=== PATIENT | female | born 1960 | race African-American/Black ===

== ENCOUNTER 2017-09-04 18:00 | Emergency (ER) | payer MEDICAID ==
[2017-09-04 18:06] VITALS: BMI 22.9
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
[2017-09-04] MEDS ORDERED: ROBITUSSIN (PLAIN) PO ONE (20:39)
[2017-09-04] MEDS ORDERED: ROBITUSSIN AC ONE ×2 (20:42→22:13)
--- NOTE | 2017-09-04 21:18 | RAD ---
HISTORY: Cough, congestion, and fever. Study: PA and lateral chest. Comparison: Chest x-ray dated September 08, 2016. Findings: The trachea is midline. The cardiac silhouette is unremarkable. Chronic emphysematous changes. Slig htly increased opacification overlying the right lower lobe. The left lung is otherwise clear. No obv ious pneumothorax or pleural effusion. The bony thorax is unremarkable. IMPRESSION: Right lower lobe atelectasis versus early infiltrate. Reported By:
[2017-09-04] MEDS ORDERED: ROCEPHIN VIAL 1 GM IM ONE (21:50)
[2017-09-04] MEDS ORDERED: ROCEPHIN VIAL 1 GM ONE (21:50)
[2017-09-04] MEDS ORDERED: XYLOCAINE 1 % (PLAIN) ONE (21:51)
[2017-09-04 22:25] VITALS: BP 137/74
[2017-09-05] MEDS ORDERED: LEVAQUIN TAB 500 MG PO ONE (21:41)
[2017-09-05] MEDS ORDERED: ROBITUSSIN (PLAIN) PO ONE (22:05)
== END 2017-09-04 22:23 | disposition home or self-care (01) ==
LOC: ER 18:08
DX: J18.9 Pneumonia, unspecified organism (principal)
CPT/HCPCS: 71046; 87502; 87651; 96372; 99282; 99283; J0696; J2001

== ENCOUNTER 2017-12-02 15:25 | Emergency (ER) | payer OTHER, MEDICAID ==
[2017-12-02] MEDS ORDERED: DEMEROL INJ IM ONE (15:30)
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
[2017-12-02 15:34] VITALS: BMI 28.1
[2017-12-02] MEDS ORDERED: DEMEROL INJ ONE (15:38)
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
[2017-12-02 17:33] VITALS: BP 179/98
== END 2017-12-02 17:37 | disposition home or self-care (01) ==
LOC: ER 15:26
DX: Z04.1 Encounter for examination and observation following transport accident (principal); M47.817 Spondylosis without myelopathy or radiculopathy, lumbosacral region; V49.50XA Passenger injured in collision with unspecified motor vehicles in traffic accident, initial encounter
CPT/HCPCS: 71111; 72040; 72100; 73030; 73501; 73560; 96372; 99282; 99283; J2175

== ENCOUNTER 2017-12-06 10:02 | Emergency (ER) | payer OTHER, MEDICAID ==
[2017-12-06 10:08] VITALS: BP 111/68; BMI 21.5
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
[2017-12-06] MEDS ORDERED: NUBAIN INJ 10 IM ONE (12:00)
[2017-12-06] MEDS ORDERED: NUBAIN INJ 10 ONE (12:01)
[2017-12-06] MEDS ORDERED: DEMEROL INJ IM ONE (12:08)
[2017-12-06] MEDS ORDERED: DEMEROL INJ ONE (12:09)
== END 2017-12-06 12:28 | disposition home or self-care (01) ==
LOC: ER 10:26
DX: M47.22 Other spondylosis with radiculopathy, cervical region (principal); M54.2 Cervicalgia; M47.812 Spondylosis without myelopathy or radiculopathy, cervical region
CPT/HCPCS: 72125; 96372; 99282; J2175; J2300

== ENCOUNTER 2018-11-16 02:47 | Inpatient (IN) ==
[2018-11-16] MEDS ORDERED: MOTRIN TAB 800 MG PO ONE ×2 (02:57→03:00)
[2018-11-16 03:28] LABS: HEMATOCRIT 24.8 % (36.0-47.0); MEAN CORPUSCULAR HEMOGLOBIN 27.1 pg (27.0-34.0); MEAN CORPUSCULAR HGB CONC 32.1 g/dL (33.0-35.0); MEAN CORPUSCULAR VOLUME 84.2 fL (80.0-100.0); PLATELET COUNT 270 X10^3/uL (150.0-450.0); RED BLOOD COUNT 2.95 X10^6/uL (3.5-5.4); RED CELL DISTRIBUTION WIDTH 19.1 % (11.6-16.5); WHITE BLOOD COUNT 6.4 X10^3/uL (3.6-10.0)
[2018-11-16 03:29] LABS: BASOPHILS # (AUTO) 0.1 X10^3/uL (0.0-0.1); BASOPHILS % (AUTO) 0.8 % (0.2-1.0); EOSINOPHILS # (AUTO) 0.2 x10^3/uL (0.0-0.2); EOSINOPHILS % (AUTO) 2.9 % (0.9-2.9); LYMPHOCYTES # (AUTO) 0.9 X10^3/uL (1.3-2.9); LYMPHOCYTES % (AUTO) 13.9 % (21.0-51.0); MEAN PLATELET VOLUME 8.1 fL (7.4-11.0); MONOCYTES # (AUTO) 0.4 x10^3/uL (0.3-0.8); MONOCYTES % (AUTO) 6.8 % (0.0-13.0); NEUTROPHILS # (AUTO) 4.8 x10^3/uL (2.2-4.8); NEUTROPHILS % (AUTO) 75.6 % (42.0-75.0)
[2018-11-16 03:40] LABS: ALANINE AMINOTRANSFERASE 7 Units/L (12-78); ALBUMIN 2.4 g/dL (3.4-5.0); ALKALINE PHOSPHATASE 107 Units/L (46-116); ASPARTATE AMINO TRANSFERASE 24 Units/L (15-37); BLOOD UREA NITROGEN 11 mg/dL (7-18); CALCIUM 8.5 mg/dL (8.5-10.1); CARBON DIOXIDE 25.8 mmol/L (21-32); CHLORIDE 102 mmol/L (98-107); COR CA(FOR HYPOALB) 9.8 mg/dL (8.5-10.1); CREATININE 1.19 mg/dL (0.55-1.02); SODIUM 138 mmol/L (136-145); TOTAL PROTEIN 7.9 g/dL (6.4-8.2); eGFR NON BLACK RACES 49 (>60)
--- NOTE | 2018-11-16 04:03 | RAD ---
AP chest Indication: Shortness of breath with fever Comparison: 12/02/2017 Findings: Trachea is midline. Heart size is normal. Chronic interstitial lung change are noted. There is increased patchy opacity within the periphery the right upper lobe. There is blunting of the right costophrenic sulcus consistent with small effusion and/or scarring. No pneumothorax. No acute osseous abnormality. Impression: Chronic interstitial lung changes with blunting of the right costophrenic sulcus representing either effusion or pleural scarring. Patchy opacity within the periphery the right upper lobe suspicious for developing infiltrate. Radiographic follow-up in 6-8 weeks is recommended to ensure resolution. Reported By:
[2018-11-16 04:05] LABS: STREP A BY PCR NOT DETECTED (NOT DETECT)
[2018-11-16] MEDS ORDERED: ROCEPHIN VIAL 1 GRAM IVP ONE (04:26)
[2018-11-16] MEDS ORDERED: TESSALON PERLES PO ONE (04:31)
--- NOTE | 2018-11-16 04:35 | DR.SOBA ---
HPI Time Seen Time Seen by Provider: 11/16/18 04:11 Primary Care Physician Primary Care Physician: ELISE HPI Comment HPI Comment: PATIENT IS 58YR OLD FEMALE Complaints Chief Complaint Doctors Comments: SOB, COUGH, FEVER AND CHEST PAIN PROGRESSIVE OVER 2 MONTHS. Chief Complaint:: SHORTNESS OF BREATH, PRODUCTIVE COUGH, LOW GRADE FEVER FOR THE LAST 2 MONTHS Self Treatment fo Chief Complaint: TYLENOL @ 5PM Reviewed Nurses Notes Reviewed: Yes Source History Provided: Patient and EMS Mode of Arrival Mode of Arrival: EMS Timing Onset of Chief Complaint: 09/17/18 Duration Duration: Months Context Onset:: At Rest PE Risk Factors:: None History of:: None Currently on:: Neither Prehospital Care:: None Modifying Factors Worsens:: Exertion and Lying Flat Improves:: Rest and Sitting Up Associated Signs and Symptoms Associated Signs and Symptoms: Cough, Nasal Congestion, Sore Throat, Chest Pain and Leg Swelling If Chest Pain Quality: Aching and Other (TIGHTNESS, ACHING.) Location: Chest Wall If Cough Cough: Nonproductive and Yellow Other History Other History: HIV POSITIVE. PMH PMH Past Medical History: Yes Past Medical History: Arthritis, COPD, Migraines and Hypertension Past Surgical History: Yes Surgical History: Appendectomy and Hysterectomy Family History History of Family Medical Conditions: Yes Family Medical History: Diabetes Mellitus, Cancer, GA and Hypertension Social History Does patient currently use any type of tobacco product: Yes Have you used tobacco products in the last 12 months: Yes Type of Tobacco Use: Cigarettes Alcohol Use: None Do you use any recreational Drugs:: No Lives Where: Home infectious screening In the last 2 months have you had wt loss of >10#?: NO Have you had fever, night sweats or hemotysis?: No Have you traveled outside the country in the last 6 months?: No Isolation: Standard PE Vital Signs Vitals: Temperature 99.3 F Pulse Rate [Right] 100 Pulse Rate 122 Respiratory Rate 18 Blood Pressure [Right Arm] 123/78 Blood Pressure [Left Arm] 103/71 Blood Pressure 126/84 O2 Sat by Pulse Oximetry 98 ROR Labs Reviewed Result Diagrams: 11/16/18 03:09 11/16/18 03:09 Laboratory: WBC 6.4 X10^3/uL (3.6-10.0) 11/16/18 03:09 RBC 2.95 X10^6/uL (3.5-5.4) L 11/16/18 03:09 Hgb 8.0 g/dL (12.0-16.0) L 11/16/18 03:09 Hct 24.8 % (36.0-47.0) L 11/16/18 03:09 MCV 84.2 fL (80.0-100.0) 11/16/18 03:09 MCH 27.1 pg (27.0-34.0) 11/16/18 03:09 MCHC 32.1 g/dL (33.0-35.0) L 11/16/18 03:09 RDW 19.1 % (11.6-16.5) H 11/16/18 03:09 Plt Count 270 X10^3/uL (150.0-450.0) 11/16/18 03:09 MPV 8.1 fL (7.4-11.0) 11/16/18 03:09 Neut % (Auto) 75.6 % (42.0-75.0) H 11/16/18 03:09 Lymph % (Auto) 13.9 % (21.0-51.0) L 11/16/18 03:09 [place] % (Auto) 6.8 % (0.0-13.0) 11/16/18 03:09 Eos % (Auto) 2.9 % (0.9-2.9) 11/16/18 03:09 Baso % (Auto) 0.8 % (0.2-1.0) 11/16/18 03:09 Neut # (Auto) 4.8 x10^3/uL (2.2-4.8) 11/16/18 03:09 Lymph # (Auto) 0.9 X10^3/uL (1.3-2.9) L 11/16/18 03:09 [place] # (Auto) 0.4 x10^3/uL (0.3-0.8) 11/16/18 03:09 Eos # (Auto) 0.2 x10^3/uL (0.0-0.2) 11/16/18 03:09 Baso # (Auto) 0.1 X10^3/uL (0.0-0.1) 11/16/18 03:09 Absolute Nucleated RBC 0.0 /100WBC 11/16/18 03:09 Sodium 138 mmol/L (136-145) 11/16/18 03:09 Corrected Sodium TNP 11/16/18 03:09 Potassium 3.8 mmol/L (3.5-5.1) 11/16/18 03:09 Chloride 102 mmol/L (98-107) 11/16/18 03:09 Carbon Dioxide 25.8 mmol/L (21-32) 11/16/18 03:09 BUN 11 mg/dL (7-18) 11/16/18 03:09 Creatinine 1.19 mg/dL (0.55-1.02) H 11/16/18 03:09 Est GFR (MDRD) Af Amer 60 (>60) 11/16/18 03:09 Est GFR (MDRD) Non-Af 49 (>60) L 11/16/18 03:09 Glucose 98 mg/dL (65-99) 11/16/18 03:09 Calcium 8.5 mg/dL (8.5-10.1) 11/16/18 03:09 Corrected Calcium 9.8 mg/dL (8.5-10.1) 11/16/18 03:09 Total Bilirubin 0.20 mg/dL (0.2-1.0) 11/16/18 03:09 AST 24 Units/L (15-37) 11/16/18 03:09 ALT 7 Units/L (12-78) L 11/16/18 03:09 Alkaline Phosphatase 107 Units/L (46-116) 11/16/18 03:09 Total Protein 7.9 g/dL (6.4-8.2) 11/16/18 03:09 Albumin 2.4 g/dL (3.4-5.0) L 11/16/18 03:09 Globulin 5.5 g/dL (2.5-4.5) H 11/16/18 03:09 Albumin/Globulin Ratio 0.4 Ratio (1.1-2.1) L 11/16/18 03:09 Influenza Type A (PCR) Negative (NEGATIVE) 11/16/18 02:55 Influenza Type B (PCR) Negative (NEGATIVE) 11/16/18 02:55 S. pyogenes (TEM-PCR) Not detected (NOT DETECT) 11/16/18 02:55
[2018-11-16] MEDS ORDERED: ROCEPHIN VIAL 1 GRAM ONE (04:41)
[2018-11-16] MEDS ORDERED: TYLENOL #3 TAB (W/CODEINE) PO ONE ×2 (04:54→04:56)
--- NOTE | 2018-11-16 05:53 | CT ---
CT facial bones without contrast Indication: Sinus congestion Comparison: None available Technique: Multiple axial images of the facial structures were obtained from the mandible to superior portions of the orbits. Findings: The visualized paranasal sinuses appear unremarkable without significant mucosal thickening or air-fluid levels. The mandible as well as the surrounding bony structures appear unremarkable. The visualized portions of the orbits as well as the globe within the right and left orbit are unremarkable in their CT appearance. IMPRESSION: Negative exam. Reported By:
[2018-11-16] MEDS ORDERED: TUSSIONEX PENNKINETIC SUSP PO PRN (06:11)
[2018-11-16] MEDS ORDERED: SALINE 3% 15 ML NEB TX NEB ONE ×2 (06:27→06:41)
[2018-11-16] MEDS: DUONEB 0.5 MG/3 MG NEB SCH ×4 (08:06→20:05)
[2018-11-16] MEDS ORDERED: DUONEB 0.5 MG/3 MG NEB SCH (09:00)
[2018-11-16] MEDS ORDERED: NS 1/2 1000 ML IV 1,000 ML ONE ×2 (09:16→21:36)
[2018-11-16] MEDS: NS 1/2 1000 ML IV 1,000 ML IV SCH ×2 (09:42→21:50)
[2018-11-16] MEDS: ROCEPHIN VIAL 1 GRAM IVP SCH ×2 (09:43→09:44)
[2018-11-16] MEDS: VIBRAMYCIN 100 MG in NS 100 ML IV + SPIKE MINIBAG* 100 ML IV SCH ×2 (09:44→20:50)
[2018-11-16] MEDS: ROBITUSSIN DM PO SCH ×5 (09:44→20:50)
[2018-11-16] MEDS ORDERED: NS 100 ML IV 100 ML ONE (13:46)
[2018-11-16] MEDS: NORCO 10/325 TAB PO PRN ×2 (14:30→21:15)
[2018-11-16] MEDS: BACTRIM DS TAB PO SCH ×2 (14:30→20:50)
--- NOTE | 2018-11-16 15:48 | CT ---
CT OF THE ABDOMEN AND PELVIS WITH CONTRAST HISTORY: Rebound tenderness Comparison: None Technique: Multiple axial images of the abdomen and pelvis were obtained from the lung bases to the pubic symphysis follow the administration of IV contrast as well as oral contrast. Dose reduction techniques including Automated Exposure Control (AEC) and adjustment of mA and kV were utlized. Findings: The heart is normal in size. There is no pericardial effusion. Focal consolidation at the left lung base. Emphysema of the lung. Liver and spleen are normal in size, enhancement characteristics and contour. No focal lesions. The portal vein is patent. No ductal dilitation. Gallbladder is present. No calcified gallstones or gallbladder wall thickening. The pancreas is unremarkable. Adrenal glands are normal. Kidneys enhance symmetrically without hydronephrosis or nephrolithiasis. No bowel obstruction or inflammation. Surgical clips in the region of the cecum. No abnormal appearing mesenteric or retroperitoneal lymph nodes. No free fluid or fluid collections. The bladder is normal in appearance. Uterus not well seen. No free fluid or abnormal pelvic lymph nodes. No aggressive osseous lesions. IMPRESSION: 1. Findings consistent with left lower lobe pneumonia, possibly secondary to aspiration. 2. No definite source of patient's abdominal pain is identified on this examination. Reported By:
[2018-11-16] MEDS: RESTORIL CAP 15 MG PO PRN (21:51)
[2018-11-17] MEDS: NORCO 10/325 TAB PO PRN ×4 (00:58→19:46)
[2018-11-17] MEDS ORDERED: VISTARIL PO ONE (01:15)
[2018-11-17] MEDS: VISTARIL PO PRN (01:22)
[2018-11-17 06:09] LABS: BASOPHILS % (AUTO) 0.7 % (0.2-1.0); EOSINOPHILS # (AUTO) 0.1 x10^3/uL (0.0-0.2); EOSINOPHILS % (AUTO) 2.8 % (0.9-2.9); HEMATOCRIT 23.4 % (36.0-47.0); HEMOGLOBIN 7.5 g/dL (12.0-16.0); LYMPHOCYTES # (AUTO) 0.6 X10^3/uL (1.3-2.9); LYMPHOCYTES % (AUTO) 12.6 % (21.0-51.0); MEAN CORPUSCULAR HEMOGLOBIN 27.4 pg (27.0-34.0); MEAN CORPUSCULAR HGB CONC 32.1 g/dL (33.0-35.0); MEAN CORPUSCULAR VOLUME 85.5 fL (80.0-100.0); MEAN PLATELET VOLUME 8.5 fL (7.4-11.0); MONOCYTES # (AUTO) 0.3 x10^3/uL (0.3-0.8); NEUTROPHILS # (AUTO) 3.8 x10^3/uL (2.2-4.8); NEUTROPHILS % (AUTO) 76.9 % (42.0-75.0); PLATELET COUNT 239 X10^3/uL (150.0-450.0); RED BLOOD COUNT 2.74 X10^6/uL (3.5-5.4); RED CELL DISTRIBUTION WIDTH 19.5 % (11.6-16.5); WHITE BLOOD COUNT 4.9 X10^3/uL (3.6-10.0)
[2018-11-17 06:42] LABS: ALBUMIN 2.1 g/dL (3.4-5.0); ALKALINE PHOSPHATASE 109 Units/L (46-116); ASPARTATE AMINO TRANSFERASE 20 Units/L (15-37); BLOOD UREA NITROGEN 13 mg/dL (7-18); CALCIUM 8.6 mg/dL (8.5-10.1); CARBON DIOXIDE 20.2 mmol/L (21-32); CHLORIDE 106 mmol/L (98-107); COR CA(FOR HYPOALB) 10.1 mg/dL (8.5-10.1); CREATININE 1.22 mg/dL (0.55-1.02); SODIUM 139 mmol/L (136-145); TOTAL PROTEIN 7.3 g/dL (6.4-8.2); eGFR NON BLACK RACES 48 (>60)
[2018-11-17 06:48] LABS: HYPOCHROMASIA SLIGHT; PLATELET MORPHOLOGY COMMENT NORMAL (NORMAL)
[2018-11-17 06:53] LABS: ALANINE AMINOTRANSFERASE < 6 Units/L (12-78)
[2018-11-17 07:10] VITALS: BMI 20.5
[2018-11-17] MEDS: ROBITUSSIN DM PO SCH ×5 (08:02→20:58)
[2018-11-17] MEDS: VIBRAMYCIN 100 MG in NS 100 ML IV + SPIKE MINIBAG* 100 ML IV SCH ×2 (08:02→20:58)
[2018-11-17] MEDS: ROCEPHIN VIAL 1 GRAM IVP SCH (08:02)
[2018-11-17] MEDS: BACTRIM DS TAB PO SCH ×2 (08:02→20:59)
[2018-11-17] MEDS: DUONEB 0.5 MG/3 MG NEB SCH ×4 (09:21→20:16)
[2018-11-17] MEDS: NICOTINE PATCH TD SCH (11:50)
[2018-11-17] MEDS: NS 1/2 1000 ML IV 1,000 ML IV SCH (11:51)
[2018-11-17] MEDS ORDERED: NS 1/2 1000 ML IV 1,000 ML ONE (11:54)
[2018-11-17] MEDS ORDERED: TYLENOL 325 MG TAB PO ONE ×2 (21:37→22:15)
[2018-11-17] MEDS ORDERED: BENADRYL INJ 50 MG VIAL IVP ONE (21:37)
[2018-11-17] MEDS ORDERED: BENADRYL INJ 50 MG VIAL ONE (22:15)
[2018-11-17] MEDS ORDERED: NS 250 ML IV 250 ML ONE (22:32)
[2018-11-18] MEDS: NORCO 10/325 TAB PO PRN ×4 (00:36→20:58)
[2018-11-18] MEDS: NS 1/2 1000 ML IV 1,000 ML IV SCH ×3 (01:50→17:31)
[2018-11-18] MEDS ORDERED: NS 250 ML IV 250 ML ONE (02:01)
[2018-11-18] MEDS ORDERED: NS 1/2 1000 ML IV 1,000 ML ONE ×2 (04:53→17:27)
[2018-11-18 05:49] LABS: BASOPHILS % (AUTO) 0.8 % (0.2-1.0); EOSINOPHILS # (AUTO) 0.2 x10^3/uL (0.0-0.2); EOSINOPHILS % (AUTO) 5.5 % (0.9-2.9); HEMATOCRIT 30.6 % (36.0-47.0); LYMPHOCYTES # (AUTO) 0.7 X10^3/uL (1.3-2.9); LYMPHOCYTES % (AUTO) 21.1 % (21.0-51.0); MEAN CORPUSCULAR HEMOGLOBIN 27.8 pg (27.0-34.0); MEAN CORPUSCULAR HGB CONC 32.4 g/dL (33.0-35.0); MEAN CORPUSCULAR VOLUME 85.8 fL (80.0-100.0); MEAN PLATELET VOLUME 7.7 fL (7.4-11.0); MONOCYTES # (AUTO) 0.3 x10^3/uL (0.3-0.8); MONOCYTES % (AUTO) 8.5 % (0.0-13.0); NEUTROPHILS # (AUTO) 2.1 x10^3/uL (2.2-4.8); NEUTROPHILS % (AUTO) 64.1 % (42.0-75.0); PLATELET COUNT 236 X10^3/uL (150.0-450.0); RED BLOOD COUNT 3.56 X10^6/uL (3.5-5.4); RED CELL DISTRIBUTION WIDTH 17.6 % (11.6-16.5); WHITE BLOOD COUNT 3.2 X10^3/uL (3.6-10.0)
[2018-11-18 05:56] LABS: HEMOGLOBIN 9.9 g/dL (12.0-16.0)
[2018-11-18 05:58] LABS: ALANINE AMINOTRANSFERASE < 6 Units/L (12-78); ALBUMIN 2.3 g/dL (3.4-5.0); ALKALINE PHOSPHATASE 95 Units/L (46-116); ASPARTATE AMINO TRANSFERASE 19 Units/L (15-37); BLOOD UREA NITROGEN 9 mg/dL (7-18); CALCIUM 8.7 mg/dL (8.5-10.1); CARBON DIOXIDE 21.4 mmol/L (21-32); CHLORIDE 106 mmol/L (98-107); COR CA(FOR HYPOALB) 10.1 mg/dL (8.5-10.1); CREATININE 1.03 mg/dL (0.55-1.02); SODIUM 137 mmol/L (136-145); TOTAL PROTEIN 7.5 g/dL (6.4-8.2); eGFR NON BLACK RACES 58 (>60)
--- NOTE | 2018-11-18 06:27 | RAD ---
HISTORY: COPD Study: Chest AP portable Comparison: 11/16/2018 Findings: The heart is within normal limits in size. The marcela are normal. The lungs are hyperinflated but free of acute alveolar infiltrates. Chronic interstitial lung changes are present slightly more prominent on the right than the left. The bony thorax is unremarkable. IMPRESSION: Hyperinflation consistent with COPD No acute alveolar infiltrates Interstitial lung changes bilaterally slightly more prominent on the right than the left, chronic Reported By:
[2018-11-18] MEDS: DUONEB 0.5 MG/3 MG NEB SCH ×4 (09:11→20:37)
[2018-11-18] MEDS: ROBITUSSIN DM PO SCH ×4 (09:17→20:52)
[2018-11-18] MEDS: BACTRIM DS TAB PO SCH ×5 (09:17→20:59)
[2018-11-18] MEDS: NICOTINE PATCH TD SCH (09:17)
[2018-11-18] MEDS: ROCEPHIN VIAL 1 GRAM IVP SCH (09:17)
[2018-11-18] MEDS: VIBRAMYCIN 100 MG in NS 100 ML IV + SPIKE MINIBAG* 100 ML IV SCH ×2 (09:18→20:52)
[2018-11-18] MEDS: RESTORIL CAP 15 MG PO PRN (20:58)
[2018-11-19] MEDS: VISTARIL PO PRN (00:19)
[2018-11-19] MEDS: BACTRIM DS TAB PO SCH ×3 (05:37→22:16)
[2018-11-19 06:28] LABS: BASOPHILS % (AUTO) 0.7 % (0.2-1.0); EOSINOPHILS # (AUTO) 0.3 x10^3/uL (0.0-0.2); EOSINOPHILS % (AUTO) 8.5 % (0.9-2.9); HEMATOCRIT 31.2 % (36.0-47.0); HEMOGLOBIN 10.3 g/dL (12.0-16.0); LYMPHOCYTES # (AUTO) 0.3 X10^3/uL (1.3-2.9); LYMPHOCYTES % (AUTO) 9.9 % (21.0-51.0); MEAN CORPUSCULAR HEMOGLOBIN 27.6 pg (27.0-34.0); MEAN CORPUSCULAR HGB CONC 32.9 g/dL (33.0-35.0); MEAN CORPUSCULAR VOLUME 83.8 fL (80.0-100.0); MEAN PLATELET VOLUME 7.8 fL (7.4-11.0); MONOCYTES # (AUTO) 0.3 x10^3/uL (0.3-0.8); MONOCYTES % (AUTO) 9.7 % (0.0-13.0); NEUTROPHILS # (AUTO) 2.3 x10^3/uL (2.2-4.8); NEUTROPHILS % (AUTO) 71.2 % (42.0-75.0); PLATELET COUNT 265 X10^3/uL (150.0-450.0); RED BLOOD COUNT 3.72 X10^6/uL (3.5-5.4); RED CELL DISTRIBUTION WIDTH 18.3 % (11.6-16.5); WHITE BLOOD COUNT 3.2 X10^3/uL (3.6-10.0)
[2018-11-19 06:45] LABS: ALANINE AMINOTRANSFERASE 8 Units/L (12-78); ALBUMIN 2.3 g/dL (3.4-5.0); ALKALINE PHOSPHATASE 96 Units/L (46-116); ASPARTATE AMINO TRANSFERASE 21 Units/L (15-37); BLOOD UREA NITROGEN 9 mg/dL (7-18); CALCIUM 8.6 mg/dL (8.5-10.1); CARBON DIOXIDE 20.4 mmol/L (21-32); CHLORIDE 106 mmol/L (98-107); CREATININE 0.97 mg/dL (0.55-1.02); SODIUM 138 mmol/L (136-145); TOTAL PROTEIN 7.6 g/dL (6.4-8.2); eGFR NON BLACK RACES > 60 (>60)
[2018-11-19] MEDS: NS 1/2 1000 ML IV 1,000 ML IV SCH ×3 (07:02→22:16)
[2018-11-19] MEDS ORDERED: NS 1/2 1000 ML IV 1,000 ML ONE (09:03)
[2018-11-19] MEDS: NORCO 10/325 TAB PO PRN ×3 (09:08→20:29)
[2018-11-19] MEDS: VIBRAMYCIN 100 MG in NS 100 ML IV + SPIKE MINIBAG* 100 ML IV SCH ×2 (09:09→20:29)
[2018-11-19] MEDS: NICOTINE PATCH TD SCH (09:10)
[2018-11-19] MEDS: ROCEPHIN VIAL 1 GRAM IVP SCH (09:10)
[2018-11-19] MEDS: ROBITUSSIN DM PO SCH ×4 (09:10→20:36)
[2018-11-19] MEDS: DUONEB 0.5 MG/3 MG NEB SCH ×5 (09:23→20:32)
[2018-11-19] MEDS ORDERED: BENADRYL CAP/TAB 25 MG PO PRN (20:43)
[2018-11-20] MEDS ORDERED: NS 1/2 1000 ML IV 1,000 ML ONE (00:01)
[2018-11-20] MEDS: NS 1/2 1000 ML IV 1,000 ML IV SCH (00:33)
[2018-11-20] MEDS: BACTRIM DS TAB PO SCH (06:04)
[2018-11-20] MEDS: DUONEB 0.5 MG/3 MG NEB SCH ×2 (08:19→12:10)
[2018-11-20] MEDS: ROBITUSSIN DM PO SCH (10:05)
[2018-11-20] MEDS: NICOTINE PATCH TD SCH (10:05)
[2018-11-20] MEDS: NORCO 10/325 TAB PO PRN (10:10)
[2018-11-20] MEDS: VIBRAMYCIN 100 MG in NS 100 ML IV + SPIKE MINIBAG* 100 ML IV SCH (10:31)
[2018-11-20] MEDS: ROCEPHIN VIAL 1 GRAM IVP SCH (10:31)
[2018-11-20 13:30] VITALS: BP 135/87
== END 2018-11-20 12:35 | disposition home or self-care (01) | DRG 195 ==
LOC: MED/SURG 02:47 → ER 02:47 → MED/SURG 06:25
PROVIDERS: ADMIT Obstetrics & Gynecology Obstetrics; ATTEND Obstetrics & Gynecology Obstetrics
DX: I10 Essential (primary) hypertension; R10.84 Generalized abdominal pain; J44.9 Chronic obstructive pulmonary disease, unspecified; B59 Pneumocystosis; R06.02 Shortness of breath; J20.9 Acute bronchitis, unspecified; J18.8 Other pneumonia, unspecified organism; D63.8 Anemia in other chronic diseases classified elsewhere
CPT/HCPCS: 36415; 36430; 70486; 71010; 71045; 74177; 80053; 82607; 82728; 82746; 83540; 84466; 85025; 86850; 86900; 86901; 86922; 87040; 87070; 87205; 87502; 87651; 94640; 94760; 96365; 96374; 99284; A4222; P9016; Q0177; G0378; J0696; J1200; J3490; J7050; J7620

== ENCOUNTER 2019-04-27 17:13 | Inpatient (IN) ==
[2019-04-27] MEDS ORDERED: NS 1000 ML 1,000 ML IV ONE (17:28)
[2019-04-27 18:10] LABS: BASOPHILS % (AUTO) 0.1 % (0.2-1.0); EOSINOPHILS # (AUTO) 0.1 x10^3/uL (0.0-0.2); HEMATOCRIT 25.9 % (36.0-47.0); HEMOGLOBIN 8.2 g/dL (12.0-16.0); LYMPHOCYTES # (AUTO) 0.5 X10^3/uL (1.3-2.9); LYMPHOCYTES % (AUTO) 11.3 % (21.0-51.0); MEAN CORPUSCULAR HEMOGLOBIN 27.3 pg (27.0-34.0); MEAN CORPUSCULAR HGB CONC 31.8 g/dL (33.0-35.0); MEAN CORPUSCULAR VOLUME 85.8 fL (80.0-100.0); MEAN PLATELET VOLUME 8.5 fL (7.4-11.0); MONOCYTES # (AUTO) 0.2 x10^3/uL (0.3-0.8); MONOCYTES % (AUTO) 5.4 % (0.0-13.0); NEUTROPHILS # (AUTO) 3.7 x10^3/uL (2.2-4.8); NEUTROPHILS % (AUTO) 81.2 % (42.0-75.0); PLATELET COUNT 297 X10^3/uL (150.0-450.0); RED BLOOD COUNT 3.01 X10^6/uL (3.5-5.4); RED CELL DISTRIBUTION WIDTH 17.8 % (11.6-16.5); WHITE BLOOD COUNT 4.6 X10^3/uL (3.6-10.0)
[2019-04-27] MEDS ORDERED: NS 1000 ML 1,000 ML ONE (18:13)
[2019-04-27 18:14] LABS: ALBUMIN 2.4 g/dL (3.4-5.0); CALCIUM 8.6 mg/dL (8.5-10.1); CARBON DIOXIDE 24.7 mmol/L (21-32); COR CA(FOR HYPOALB) 9.9 mg/dL (8.5-10.1); CREATININE 1.29 mg/dL (0.55-1.02); TOTAL PROTEIN 8.4 g/dL (6.4-8.2)
[2019-04-27] MEDS ORDERED: NORCO 5/325 MG TAB ONE (18:14)
[2019-04-27] MEDS ORDERED: DIFLUCAN 200 MG IV PREMIX* 200 MG/100 ML BAG IV ONE (18:14)
[2019-04-27 18:19] VITALS: BMI 16.3
[2019-04-27] MEDS ORDERED: AFLURIA II4 or FLUARIX II4 IM ONE (18:19)
[2019-04-27] MEDS ORDERED: PREVNAR 13 IM ONE (18:19)
[2019-04-27] MEDS: DIFLUCAN PO SCH (18:24)
[2019-04-27] MEDS: NORCO 5/325 MG TAB PO PRN (18:25)
[2019-04-27 18:32] LABS: BAND NEUTROPHILS % 19 % (0-10)
[2019-04-27 18:33] LABS: ANISOCYTOSIS SLIGHT; PLATELET MORPHOLOGY COMMENT NORMAL (NORMAL)
[2019-04-27] MEDS: DUONEB 0.5 MG/3 MG NEB SCH (20:32)
[2019-04-27] MEDS: PULMICORT NEB TX 0.5 MG NEB SCH (20:32)
[2019-04-27] MEDS: BACTRIM DS TAB PO SCH (20:54)
[2019-04-27] MEDS: REMERON PO SCH (20:54)
[2019-04-27] MEDS: NS 1000 ML 1,000 ML IV SCH (22:01)
--- NOTE | 2019-04-27 22:27 | RAD ---
HISTORY: 59-year-old female with abdominal pain. Study: Single view the abdomen. Comparison: CT abdomen and pelvis 11/16/2018 Findings: Evaluation of the abdomen demonstrates a nonobstructive bowel gas pattern with gas and stool throughout the colon and no radiographic evidence of free intraperitoneal air. No pathological soft tissue mass or calcification can be observed. The bony structures are grossly intact. IMPRESSION: 1. No evidence for acute abdominal pathology identified. Reported By:
--- NOTE | 2019-04-27 22:28 | RAD ---
CHEST RADIOGRAPHS PA AND LATERAL VIEWS CLINICAL HISTORY: 59-year-old female with suspected pneumonia. History of COPD. COMPARISON: Chest radiographs 01/19/2019. FINDINGS: The cardiopericardial silhouette is stable with chronic prominence interstitium perihilar lung markings. Retrocardiac consolidation without pneumothorax or effusion. The lungs are well inflated. Pulmonary vascularity is normal. Imaged osseous structures are intact. Soft tissues are unremarkable. IMPRESSION: Left lower lobe pneumonia superimposed upon COPD. Correlate with serology and clinically and follow-up to resolution. Reported By:
[2019-04-28] MEDS: NORCO 5/325 MG TAB PO PRN ×4 (00:26→21:46)
[2019-04-28] MEDS: DUONEB 0.5 MG/3 MG NEB SCH ×6 (00:58→20:20)
[2019-04-28 05:23] LABS: BASOPHILS % (AUTO) 0.6 % (0.2-1.0); EOSINOPHILS # (AUTO) 0.1 x10^3/uL (0.0-0.2); EOSINOPHILS % (AUTO) 1.9 % (0.9-2.9); HEMATOCRIT 23.8 % (36.0-47.0); HEMOGLOBIN 7.6 g/dL (12.0-16.0); LYMPHOCYTES # (AUTO) 0.3 X10^3/uL (1.3-2.9); LYMPHOCYTES % (AUTO) 8.8 % (21.0-51.0); MEAN CORPUSCULAR HEMOGLOBIN 27.7 pg (27.0-34.0); MEAN CORPUSCULAR VOLUME 86.7 fL (80.0-100.0); MEAN PLATELET VOLUME 9.2 fL (7.4-11.0); MONOCYTES # (AUTO) 0.1 x10^3/uL (0.3-0.8); MONOCYTES % (AUTO) 3.5 % (0.0-13.0); NEUTROPHILS # (AUTO) 3.3 x10^3/uL (2.2-4.8); NEUTROPHILS % (AUTO) 85.2 % (42.0-75.0); PLATELET COUNT 278 X10^3/uL (150.0-450.0); RED BLOOD COUNT 2.74 X10^6/uL (3.5-5.4); RED CELL DISTRIBUTION WIDTH 17.4 % (11.6-16.5); WHITE BLOOD COUNT 3.9 X10^3/uL (3.6-10.0)
[2019-04-28 05:36] LABS: ALANINE AMINOTRANSFERASE 9 Units/L (12-78); ALKALINE PHOSPHATASE 186 Units/L (46-116); ASPARTATE AMINO TRANSFERASE 25 Units/L (15-37); BLOOD UREA NITROGEN 13 mg/dL (7-18); CALCIUM 7.8 mg/dL (8.5-10.1); CARBON DIOXIDE 21.7 mmol/L (21-32); CHLORIDE 109 mmol/L (98-107); COR CA(FOR HYPOALB) 9.4 mg/dL (8.5-10.1); CREATININE 1.19 mg/dL (0.55-1.02); SODIUM 140 mmol/L (136-145); TOTAL PROTEIN 7.2 g/dL (6.4-8.2); eGFR NON BLACK RACES 49 (>60)
[2019-04-28 05:40] LABS: PLATELET MORPHOLOGY COMMENT NORMAL (NORMAL)
[2019-04-28 05:43] LABS: ANISOCYTOSIS SLIGHT
[2019-04-28] MEDS: NS 1000 ML 1,000 ML IV SCH ×3 (05:44→21:43)
[2019-04-28] MEDS: PULMICORT NEB TX 0.5 MG NEB SCH ×2 (08:29→20:20)
[2019-04-28] MEDS: DIFLUCAN PO SCH (08:32)
[2019-04-28] MEDS: BACTRIM DS TAB PO SCH ×3 (08:32→21:49)
--- NOTE | 2019-04-28 11:26 | RAD ---
HISTORY: Right 5th toe pain Study: Three-view right foot Comparison: 02/27/2019. Findings: There is evidence of prior bunionectomy with osteotomy involving the medial aspect of the right distal 1st metatarsal. Two metallic screws are present in this region. Two metallic screws are also present involving the distal shaft of the right 5th metatarsal. There is a healing nondisplaced fracture of the proximal shaft of the right 5th metatarsal. There is a healing oblique fracture of the mid-distal shaft of the proximal phalanx of the right 5th toe. Cortical fractures are seen involving the medial aspects of the proximal phalanges of the right 3rd and 4th toes. The fractures appear to extend into the articular surface of these toes and the fractures are not displaced. There is fusion of the interphalangeal joint of the right 2nd. IMPRESSION: Multiple healing fractures as noted above, including the proximal phalanx of the right 5th toe. No significant displacement is seen. All fractures appear closed. Postsurgical changes as noted above. Reported By:
[2019-04-28] MEDS: ZOSYN VIAL 3.375 GRAMS IV SCH ×2 (15:27→21:46)
[2019-04-28] MEDS ORDERED: K-DUR TAB 20 MEQ PO PRN (19:06)
[2019-04-28] MEDS ORDERED: MICRO K EXTEN CAP 10 MEQ PO PRN (19:06)
[2019-04-28] MEDS ORDERED: POTASSIUM CHL 40 MEQ/NS 0.45% 500 ML IV PRN (19:06)
[2019-04-28] MEDS ORDERED: KLOR-CON PO PRN (19:06)
[2019-04-28] MEDS ORDERED: K-RIDER 10 MEQ/NS 100 ML 10 MEQ/100 ML BAG IV PRN (19:06)
[2019-04-28] MEDS ORDERED: POTASSIUM CHLORIDE LIQ 20 MEQ UDC PO PRN (19:06)
[2019-04-28] MEDS ORDERED: POTASSIUM CHL 60 MEQ/NS 0.45% 500 ML IV PRN (19:06)
[2019-04-28] MEDS: REMERON PO SCH (21:44)
[2019-04-29] MEDS: DUONEB 0.5 MG/3 MG NEB SCH ×6 (00:51→21:00)
[2019-04-29] MEDS ORDERED: NS 250 ML IV 250 ML IV ONE ×2 (02:01→14:07)
[2019-04-29] MEDS: BACTRIM DS TAB PO SCH ×3 (05:19→21:06)
[2019-04-29] MEDS: NORCO 5/325 MG TAB PO PRN ×3 (05:19→20:21)
[2019-04-29] MEDS: NS 1000 ML 1,000 ML IV SCH ×3 (05:54→20:20)
[2019-04-29] MEDS: PULMICORT NEB TX 0.5 MG NEB SCH ×2 (08:37→21:00)
[2019-04-29] MEDS: MAGNESIUM SULFATE 1 GRAM/100 mL PREMIX 1 GM/100 ML BAG IV PRN ×2 (08:56→10:45)
[2019-04-29] MEDS: DIFLUCAN PO SCH (08:57)
[2019-04-29 09:13] LABS: EOSINOPHILS # (AUTO) 0.1 x10^3/uL (0.0-0.2); EOSINOPHILS % (AUTO) 2.8 % (0.9-2.9); HEMATOCRIT 26.6 % (36.0-47.0); HEMOGLOBIN 8.7 g/dL (12.0-16.0); LYMPHOCYTES # (AUTO) 0.2 X10^3/uL (1.3-2.9); LYMPHOCYTES % (AUTO) 5.6 % (21.0-51.0); MEAN CORPUSCULAR HEMOGLOBIN 27.8 pg (27.0-34.0); MEAN CORPUSCULAR HGB CONC 32.9 g/dL (33.0-35.0); MEAN CORPUSCULAR VOLUME 84.6 fL (80.0-100.0); MEAN PLATELET VOLUME 7.9 fL (7.4-11.0); MONOCYTES # (AUTO) 0.1 x10^3/uL (0.3-0.8); MONOCYTES % (AUTO) 3.5 % (0.0-13.0); NEUTROPHILS # (AUTO) 2.8 x10^3/uL (2.2-4.8); NEUTROPHILS % (AUTO) 87.1 % (42.0-75.0); PLATELET COUNT 259 X10^3/uL (150.0-450.0); RED BLOOD COUNT 3.14 X10^6/uL (3.5-5.4); RED CELL DISTRIBUTION WIDTH 17.2 % (11.6-16.5); WHITE BLOOD COUNT 3.2 X10^3/uL (3.6-10.0)
[2019-04-29 09:28] LABS: ALANINE AMINOTRANSFERASE 8 Units/L (12-78); ALBUMIN 1.8 g/dL (3.4-5.0); ALKALINE PHOSPHATASE 186 Units/L (46-116); ASPARTATE AMINO TRANSFERASE 27 Units/L (15-37); BLOOD UREA NITROGEN 13 mg/dL (7-18); CALCIUM 7.9 mg/dL (8.5-10.1); CARBON DIOXIDE 21.1 mmol/L (21-32); CHLORIDE 110 mmol/L (98-107); COR CA(FOR HYPOALB) 9.7 mg/dL (8.5-10.1); CREATININE 1.03 mg/dL (0.55-1.02); SODIUM 139 mmol/L (136-145); TOTAL PROTEIN 6.7 g/dL (6.4-8.2); eGFR NON BLACK RACES 58 (>60)
[2019-04-29 10:32] LABS: BAND NEUTROPHILS % 8 % (0-10); HYPOCHROMASIA SLIGHT; PLATELET MORPHOLOGY COMMENT NORMAL (NORMAL)
[2019-04-29 10:33] LABS: ANISOCYTOSIS SLIGHT
[2019-04-29 11:30] LABS: BAND NEUTROPHILS % 20 % (0-10)
[2019-04-29] MEDS ORDERED: NS 250 ML IV 250 ML IV SCH (14:30)
[2019-04-29] MEDS: ZOSYN VIAL 3.375 GRAMS IV SCH ×2 (14:41→21:05)
[2019-04-29] MEDS: REMERON PO SCH (20:22)
[2019-04-30] MEDS ORDERED: NS 250 ML IV 250 ML IV ONE (01:03)
[2019-04-30] MEDS: DUONEB 0.5 MG/3 MG NEB SCH ×6 (01:15→20:55)
[2019-04-30] MEDS: NORCO 5/325 MG TAB PO PRN ×4 (02:04→22:54)
[2019-04-30 05:20] LABS: BASOPHILS % (AUTO) 0.4 % (0.2-1.0); EOSINOPHILS # (AUTO) 0.1 x10^3/uL (0.0-0.2); EOSINOPHILS % (AUTO) 4.5 % (0.9-2.9); HEMATOCRIT 32.1 % (36.0-47.0); LYMPHOCYTES # (AUTO) 0.2 X10^3/uL (1.3-2.9); LYMPHOCYTES % (AUTO) 6.2 % (21.0-51.0); MEAN CORPUSCULAR HGB CONC 33.5 g/dL (33.0-35.0); MEAN CORPUSCULAR VOLUME 83.6 fL (80.0-100.0); MEAN PLATELET VOLUME 7.8 fL (7.4-11.0); MONOCYTES # (AUTO) 0.2 x10^3/uL (0.3-0.8); MONOCYTES % (AUTO) 5.7 % (0.0-13.0); NEUTROPHILS # (AUTO) 2.5 x10^3/uL (2.2-4.8); NEUTROPHILS % (AUTO) 83.2 % (42.0-75.0); PLATELET COUNT 253 X10^3/uL (150.0-450.0); RED BLOOD COUNT 3.84 X10^6/uL (3.5-5.4); RED CELL DISTRIBUTION WIDTH 16.5 % (11.6-16.5)
[2019-04-30] MEDS: BACTRIM DS TAB PO SCH ×3 (05:28→21:16)
[2019-04-30 05:30] LABS: ALANINE AMINOTRANSFERASE 11 Units/L (12-78); ALBUMIN 1.9 g/dL (3.4-5.0); ALKALINE PHOSPHATASE 199 Units/L (46-116); ASPARTATE AMINO TRANSFERASE 30 Units/L (15-37); BLOOD UREA NITROGEN 13 mg/dL (7-18); CARBON DIOXIDE 17.8 mmol/L (21-32); CHLORIDE 110 mmol/L (98-107); COR CA(FOR HYPOALB) 9.7 mg/dL (8.5-10.1); CREATININE 1.05 mg/dL (0.55-1.02); SODIUM 139 mmol/L (136-145); TOTAL PROTEIN 6.9 g/dL (6.4-8.2); eGFR NON BLACK RACES 57 (>60)
[2019-04-30] MEDS: ZOSYN VIAL 3.375 GRAMS IV SCH ×4 (05:34→21:16)
[2019-04-30 05:51] LABS: HEMOGLOBIN 10.7 g/dL (12.0-16.0); PLATELET MORPHOLOGY COMMENT NORMAL (NORMAL)
--- NOTE | 2019-04-30 06:22 | RAD ---
HISTORY: Follow-up pneumonia Study: Chest PA and lateral Comparison: 04/27/2019 Findings: The heart is within normal limits in size. The marcela are normal. The lungs are hyperinflated consistent with COPD. Mild interstitial lung changes are present throughout more prominent on the right than the left. There is no significant change noted in the infiltrate projected over the lower thoracic spine on the lateral view. Is difficult to determine whether this infiltrate is on the right or the left however it is likely on the right rather than the left as was suggested on the prior examination. In any case it is not significantly changed. No pleural effusions are identified. The bony thorax is unremarkable. IMPRESSION: COPD with interstitial lung disease No change in the posterior basal pneumonia noted on the prior examination which appears to be on the right rather than the left. Reported By:
[2019-04-30] MEDS: DIFLUCAN PO SCH (08:50)
[2019-04-30] MEDS: NS 1000 ML 1,000 ML IV SCH ×2 (09:30→16:30)
[2019-04-30] MEDS ORDERED: CITROMA PO ONE (09:45)
[2019-04-30] MEDS ORDERED: COLACE CAP 100 MG PO PRN (09:45)
[2019-04-30] MEDS: MOTRIN TAB 600 MG PO PRN ×2 (10:30→20:52)
[2019-04-30] MEDS: PULMICORT NEB TX 0.5 MG NEB SCH ×2 (11:27→20:55)
[2019-04-30] MEDS ORDERED: NS 100 ML IV + SPIKE MINIBAG* 100 ML IV ONE (14:34)
[2019-04-30] MEDS: MYCELEX TROCHE MT SCH ×3 (14:43→20:46)
[2019-04-30] MEDS: REMERON PO SCH (20:45)
[2019-05-01] MEDS: DUONEB 0.5 MG/3 MG NEB SCH ×7 (01:05→20:20)
[2019-05-01] MEDS: ZOSYN VIAL 3.375 GRAMS IV SCH ×3 (05:13→21:12)
[2019-05-01] MEDS: BACTRIM DS TAB PO SCH ×3 (05:14→21:09)
[2019-05-01] MEDS: MYCELEX TROCHE MT SCH ×5 (05:14→21:08)
[2019-05-01 06:14] LABS: BASOPHILS % (AUTO) 0.6 % (0.2-1.0); EOSINOPHILS # (AUTO) 0.2 x10^3/uL (0.0-0.2); EOSINOPHILS % (AUTO) 8.7 % (0.9-2.9); HEMOGLOBIN 10.6 g/dL (12.0-16.0); LYMPHOCYTES # (AUTO) 0.2 X10^3/uL (1.3-2.9); MEAN CORPUSCULAR HEMOGLOBIN 28.2 pg (27.0-34.0); MEAN CORPUSCULAR HGB CONC 33.1 g/dL (33.0-35.0); MEAN PLATELET VOLUME 8.1 fL (7.4-11.0); MONOCYTES # (AUTO) 0 x10^3/uL (0.3-0.8); NEUTROPHILS # (AUTO) 2.1 x10^3/uL (2.2-4.8); NEUTROPHILS % (AUTO) 81.7 % (42.0-75.0); PLATELET COUNT 261 X10^3/uL (150.0-450.0); RED BLOOD COUNT 3.77 X10^6/uL (3.5-5.4); RED CELL DISTRIBUTION WIDTH 16.9 % (11.6-16.5); WHITE BLOOD COUNT 2.6 X10^3/uL (3.6-10.0)
[2019-05-01 06:30] LABS: ALANINE AMINOTRANSFERASE 15 Units/L (12-78); ALBUMIN 1.8 g/dL (3.4-5.0); ALKALINE PHOSPHATASE 224 Units/L (46-116); ASPARTATE AMINO TRANSFERASE 48 Units/L (15-37); BLOOD UREA NITROGEN 12 mg/dL (7-18); CALCIUM 8.1 mg/dL (8.5-10.1); CARBON DIOXIDE 17.6 mmol/L (21-32); CHLORIDE 109 mmol/L (98-107); COR CA(FOR HYPOALB) 9.9 mg/dL (8.5-10.1); SODIUM 139 mmol/L (136-145); TOTAL PROTEIN 6.7 g/dL (6.4-8.2); eGFR NON BLACK RACES 60 (>60)
[2019-05-01 06:45] LABS: BAND NEUTROPHILS % 7 % (0-10)
[2019-05-01 06:47] LABS: PLATELET MORPHOLOGY COMMENT NORMAL (NORMAL)
[2019-05-01 06:48] LABS: ANISOCYTOSIS SLIGHT
[2019-05-01 06:49] LABS: TARGET CELLS RARE
--- NOTE | 2019-05-01 07:03 | RAD ---
Examination: Chest, PA and lateral views History: Pneumonia Comparison 04/30/2019 Findings: Stable cardiac size and configuration. Increasing infiltrates in both lower lobes. The upper lungs remain relatively clear. There is no large pleural effusion demonstrated. Impression: Persistent and increasing bibasal infiltrates consistent with multi lobar pneumonia. Reported By:
[2019-05-01] MEDS: NS 1000 ML 1,000 ML IV SCH ×6 (07:23→23:58)
[2019-05-01] MEDS: PULMICORT NEB TX 0.5 MG NEB SCH ×2 (09:11→20:20)
[2019-05-01] MEDS: DIFLUCAN PO SCH (09:53)
--- NOTE | 2019-05-01 10:44 | PCM.PROG ---
Progress Note Progress Note for Day of Date of Exam: 05/01/19 Subjective Subjective: Pt 59yo f admitted for AIDS, multifocal pneumonia, and anemia. She is s/p 4u of prbc, hgb 7.6>10.6 and is stable. CXR remained unchanged until today, w/ results of persistent and increasing bibasilar infiltrates c/w multifocal pneumonia. She is on abx Zosyn, Bactrim, and Diflucan. Mycelex was added for thrush. She reports drinking some Ensure to help her with her nutrition. She reports some minimal improvement compared to day prior. Past Medical Family Social History Past Med/Fam/Surg Hx: No changes since H&P Allergies: Allergies ketorolac [From Toradol] Allergy (Verified 11/16/18 02:58) propoxyphene [From Darvocet-N 100] Allergy (Verified 11/16/18 02:58) Review of Systems ROS: No change since H&P Vital Signs and I&O's Vital Signs: Temperature 98.7 F Pulse Rate [Right Brachial] 86 Pulse Rate [Left Brachial] 77 Pulse Rate 90 Respiratory Rate 18 Blood Pressure [Left Arm] 127/87 Blood Pressure [Right Arm] 135/95 O2 Sat by Pulse Oximetry 93 Intake and Output: Intake & Output 04/28/19 04/29/19 04/30/19 05/01/19 23:59 23:59 23:59 23:59 Intake Total 2730 / 2730 3200 / 3200 1060 / 1060 0 / 0 Balance 2730 / 2730 3200 / 3200 1060 / 1060 0 / 0 Physical Exam Oriented: Normal Eyes: Normal Respiratory: Wheezes and Rhonchi Cardiovascular: Normal : Normal Auscultation: Bowel Sounds: Normal Tenderness: Normal Skin: Normal Psychiatric: Normal Speech Pattern: Clear and Appropriate Laboratory and Diagnostics Result Diagrams: 05/01/19 04:53 05/01/19 04:53 Labs: 04/27/19 17:45 Sputum - Expectorated Sputum Sputum Culture - Final 04/27/19 17:45 Sputum - Expectorated Sputum - Final Laboratory WBC 2.6 X10^3/uL (3.6-10.0) L 05/01/19 04:53 RBC 3.77 X10^6/uL (3.5-5.4) 05/01/19 04:53 Hgb 10.6 g/dL (12.0-16.0) L 05/01/19 04:53 Hct 32.0 % (36.0-47.0) L 05/01/19 04:53 MCV 85.0 fL (80.0-100.0) 05/01/19 04:53 MCH 28.2 pg (27.0-34.0) 05/01/19 04:53 MCHC 33.1 g/dL (33.0-35.0) 05/01/19 04:53 RDW 16.9 % (11.6-16.5) H 05/01/19 04:53 Plt Count 261 X10^3/uL (150.0-450.0) 05/01/19 04:53 Plt Count Comment Adequate (ADEQUATE) 05/01/19 04:53 MPV 8.1 fL (7.4-11.0) 05/01/19 04:53 Neut % (Auto) 81.7 % (42.0-75.0) H 05/01/19 04:53 Lymph % (Auto) 8.0 % (21.0-51.0) L 05/01/19 04:53 [place] % (Auto) 1.0 % (0.0-13.0) 05/01/19 04:53 Eos % (Auto) 8.7 % (0.9-2.9) H 05/01/19 04:53 Baso % (Auto) 0.6 % (0.2-1.0) 05/01/19 04:53 Neut # (Auto) 2.1 x10^3/uL (2.2-4.8) L 05/01/19 04:53 Lymph # (Auto) 0.2 X10^3/uL (1.3-2.9) L 05/01/19 04:53 [place] # (Auto) 0 x10^3/uL (0.3-0.8) L 05/01/19 04:53 Eos # (Auto) 0.2 x10^3/uL (0.0-0.2) 05/01/19 04:53 Baso # (Auto) 0.0 X10^3/uL (0.0-0.1) 05/01/19 04:53 Absolute Nucleated RBC 0.1 /100WBC 05/01/19 04:53 Total Counted 100 05/01/19 04:53 Neutrophils % (Manual) 68 % (39-76) 05/01/19 04:53 Band Neutrophils % 7 % (0-10) 05/01/19 04:53 Lymphocytes % (Manual) 7 % (13-43) L 05/01/19 04:53 Monocytes % (Manual) 9 % (4-9) 05/01/19 04:53 Eosinophils % (Manual) 9 % (0-6) H 05/01/19 04:53 Atypical Lymphocytes 1 04/27/19 17:53 Plt Morphology Comment Normal (NORMAL) 05/01/19 04:53 RBC Morphology Abnormal (NORMAL) A 05/01/19 04:53 Hypochromasia Slight A 04/29/19 09:01 Anisocytosis Slight A 05/01/19 04:53 Target Cells Rare 05/01/19 04:53 Sodium 139 mmol/L (136-145) 05/01/19 04:53 Corrected Sodium TNP 05/01/19 04:53 Potassium 4.5 mmol/L (3.5-5.1) 05/01/19 04:53 Chloride 109 mmol/L (98-107) H 05/01/19 04:53 Carbon Dioxide 17.6 mmol/L (21-32) L 05/01/19 04:53 BUN 12 mg/dL (7-18) 05/01/19 04:53 Creatinine 1.00 mg/dL (0.55-1.02) 05/01/19 04:53 Est GFR (MDRD) Af Amer > 60 (>60) 05/01/19 04:53 Est GFR (MDRD) Non-Af 60 (>60) 05/01/19 04:53 Glucose 62 mg/dL (65-99) L 05/01/19 04:53 Calcium 8.1 mg/dL (8.5-10.1) L 05/01/19 04:53 Corrected Calcium 9.9 mg/dL (8.5-10.1) 05/01/19 04:53 Magnesium 1.7 mg/dL (1.7-2.9) 04/28/19 04:09 Total Bilirubin 0.10 mg/dL (0.2-1.0) L 05/01/19 04:53 AST 48 Units/L (15-37) H 05/01/19 04:53 ALT 15 Units/L (12-78) 05/01/19 04:53 Alkaline Phosphatase 224 Units/L (46-116) H 05/01/19 04:53 Total Protein 6.7 g/dL (6.4-8.2) 05/01/19 04:53 Albumin 1.8 g/dL (3.4-5.0) L 05/01/19 04:53 Globulin 4.9 g/dL (2.5-4.5) H 05/01/19 04:53 Albumin/Globulin Ratio 0.4 Ratio (1.1-2.1) L 05/01/19 04:53 Blood Type O POSITIVE 04/28/19 10:08 Antibody Screen Positive 04/28/19 10:08 Antibody Identification NEGATIVE BY ARC 04/28/19 10:08 Crossmatch See Detail 04/28/19 10:08 Plan (1) AIDS (acquired immunodeficiency syndrome): Status: Acute Plan: Noted in history, unable to provide or order CD4 count d/t facility limitations. Will obtain HIV viral load count. (2) Multifocal pneumonia: Status: Acute Plan: Worsening pneumonia on CXR. Will get CT-chest and pneumonia labs. SputumCx negative. Continue bronchodilators and RT. (3) Anemia: Status: Acute Plan: Hgb stable. Continue to monitor. (4) Immunosuppressed status: Status: Acute
[2019-05-01] MEDS: NORCO 5/325 MG TAB PO PRN ×3 (11:17→23:59)
[2019-05-01 12:52] LABS: MYCOPLASMA PNEUMONIAE IGM AB NEGATIVE (NEGATIVE)
[2019-05-01] MEDS ORDERED: NS 100 ML IV + SPIKE MINIBAG* 100 ML IV ONE (13:48)
--- NOTE | 2019-05-01 14:11 | CT ---
HISTORY: Dyspnea and bibasilar pneumonia. Study: CT chest without contrast Comparison: Multiple priors including the most recent chest radiograph exam. Technique: Multiple axial images of the chest were obtained from the thoracic inlet to the upper abdomen without the administration of IV contrast. Findings: The thoracic inlet is unchanged from prior. Biapical centrilobular emphysematous changes are appreciated. The mediastinum does not demonstrate significant pathological lymphadenopathy. There is no pericardial effusion observed. The thoracic aorta is normal in its contour without evidence for aneurysmal dilatation. Evaluation of the lung parenchyma bibasilar airspace disease which can be seen with pneumonia, atelectasis, or aspiration. No new or enlarging pulmonary nodule or mass can be identified. The bony thorax stable from prior. The visualized portions of the upper abdomen are grossly unchanged. IMPRESSION: 1. Bibasilar airspace disease which can be seen with atelectasis, infection, or aspiration. Several sub-cm ground-glass nodular densities in the lingula and RML are observed which have an inflammatory appearance. These findings should be followed up with chest CT imaging in 1 month to ensure resolution. No other changes from prior are identified. Reported By:
[2019-05-01] MEDS: REMERON PO SCH (21:08)
[2019-05-02] MEDS: DUONEB 0.5 MG/3 MG NEB SCH ×7 (01:00→20:13)
[2019-05-02] MEDS: MYCELEX TROCHE MT SCH ×5 (05:09→21:21)
[2019-05-02] MEDS: NS 1000 ML 1,000 ML IV SCH ×5 (05:31→21:11)
[2019-05-02] MEDS: ZOSYN VIAL 3.375 GRAMS IV SCH ×3 (05:46→21:10)
[2019-05-02] MEDS: BACTRIM DS TAB PO SCH ×3 (05:50→21:11)
[2019-05-02 06:08] LABS: BASOPHILS % (AUTO) 0.8 % (0.2-1.0); EOSINOPHILS # (AUTO) 0.2 x10^3/uL (0.0-0.2); EOSINOPHILS % (AUTO) 7.8 % (0.9-2.9); HEMATOCRIT 34.3 % (36.0-47.0); HEMOGLOBIN 11.1 g/dL (12.0-16.0); LYMPHOCYTES # (AUTO) 0.1 X10^3/uL (1.3-2.9); LYMPHOCYTES % (AUTO) 6.6 % (21.0-51.0); MEAN CORPUSCULAR HEMOGLOBIN 27.6 pg (27.0-34.0); MEAN CORPUSCULAR HGB CONC 32.5 g/dL (33.0-35.0); MEAN CORPUSCULAR VOLUME 85.1 fL (80.0-100.0); MEAN PLATELET VOLUME 8.1 fL (7.4-11.0); MONOCYTES # (AUTO) 0.1 x10^3/uL (0.3-0.8); NEUTROPHILS # (AUTO) 1.6 x10^3/uL (2.2-4.8); NEUTROPHILS % (AUTO) 78.8 % (42.0-75.0); PLATELET COUNT 276 X10^3/uL (150.0-450.0); RED BLOOD COUNT 4.03 X10^6/uL (3.5-5.4); RED CELL DISTRIBUTION WIDTH 16.9 % (11.6-16.5); WHITE BLOOD COUNT 2.1 X10^3/uL (3.6-10.0)
[2019-05-02 06:27] LABS: ALANINE AMINOTRANSFERASE 19 Units/L (12-78); ALBUMIN 1.9 g/dL (3.4-5.0); ALKALINE PHOSPHATASE 222 Units/L (46-116); ASPARTATE AMINO TRANSFERASE 64 Units/L (15-37); BLOOD UREA NITROGEN 12 mg/dL (7-18); CALCIUM 8.5 mg/dL (8.5-10.1); CARBON DIOXIDE 17.3 mmol/L (21-32); CHLORIDE 110 mmol/L (98-107); COR CA(FOR HYPOALB) 10.2 mg/dL (8.5-10.1); CREATININE 0.96 mg/dL (0.55-1.02); SODIUM 139 mmol/L (136-145); TOTAL PROTEIN 6.8 g/dL (6.4-8.2); eGFR NON BLACK RACES > 60 (>60)
[2019-05-02 07:19] LABS: BAND NEUTROPHILS % 4 % (0-10)
[2019-05-02 07:20] LABS: ANISOCYTOSIS SLIGHT; PLATELET MORPHOLOGY COMMENT NORMAL (NORMAL)
[2019-05-02] MEDS: PULMICORT NEB TX 0.5 MG NEB SCH ×2 (09:39→20:13)
[2019-05-02] MEDS: DIFLUCAN PO SCH (09:51)
--- NOTE | 2019-05-02 10:04 | PCM.PROG ---
Progress Note Progress Note for Day of Date of Exam: 05/02/19 Subjective Subjective: Pt 59yo f admitted for AIDS, multifocal pneumonia, and anemia. She is s/p 4u of prbc, hgb 7.6>10.6 and is stable. CXR(05/01) results of persistent and increasing bibasilar infiltrates c/w multifocal pneumonia. CT chest w/o sample dye mixer(05/01) results Bibasilar airspace disease which can be seen with atelectasis, infection, or aspiration. Several sub-cm ground-glass nodular densities in the lingula and RML are observed which have an inflammatory appearance. She is on abx Zosyn, Bactrim, and Diflucan. Mycelex for thrush. She is drinking Ensure for supplemental nutrition. She reports her breathing has improved. Past Medical Family Social History Past Med/Fam/Surg Hx: No changes since H&P Allergies: Allergies ketorolac [From Toradol] Allergy (Verified 11/16/18 02:58) propoxyphene [From Darvocet-N 100] Allergy (Verified 11/16/18 02:58) Review of Systems ROS: No change since H&P Vital Signs and I&O's Vital Signs: Temperature 99.1 F Pulse Rate [Right Brachial] 86 Pulse Rate [Left Brachial] 77 Pulse Rate 90 Respiratory Rate 18 Blood Pressure [Left Arm] 127/87 Blood Pressure [Right Arm] 134/87 O2 Sat by Pulse Oximetry 96 Intake and Output: Intake & Output 04/29/19 04/30/19 05/01/19 05/02/19 23:59 23:59 23:59 23:59 Intake Total 3200 / 3200 1060 / 1060 2500 / 2500 0 / 0 Balance 3200 / 3200 1060 / 1060 2500 / 2500 0 / 0 Physical Exam Oriented: Normal Eyes: Normal Respiratory: Wheezes and Rhonchi Cardiovascular: Normal : Normal Auscultation: Bowel Sounds: Normal Tenderness: Normal Skin: Normal Psychiatric: Normal Speech Pattern: Clear and Appropriate Laboratory and Diagnostics Result Diagrams: 05/02/19 04:39 05/02/19 04:39 Labs: 04/27/19 17:45 Sputum - Expectorated Sputum Sputum Culture - Final 04/27/19 17:45 Sputum - Expectorated Sputum - Final Laboratory WBC 2.1 X10^3/uL (3.6-10.0) L 05/02/19 04:39 RBC 4.03 X10^6/uL (3.5-5.4) 05/02/19 04:39 Hgb 11.1 g/dL (12.0-16.0) L 05/02/19 04:39 Hct 34.3 % (36.0-47.0) L 05/02/19 04:39 MCV 85.1 fL (80.0-100.0) 05/02/19 04:39 MCH 27.6 pg (27.0-34.0) 05/02/19 04:39 MCHC 32.5 g/dL (33.0-35.0) L 05/02/19 04:39 RDW 16.9 % (11.6-16.5) H 05/02/19 04:39 Plt Count 276 X10^3/uL (150.0-450.0) 05/02/19 04:39 Plt Count Comment Adequate (ADEQUATE) 05/02/19 04:39 MPV 8.1 fL (7.4-11.0) 05/02/19 04:39 Neut % (Auto) 78.8 % (42.0-75.0) H 05/02/19 04:39 Lymph % (Auto) 6.6 % (21.0-51.0) L 05/02/19 04:39 [place] % (Auto) 6.0 % (0.0-13.0) 05/02/19 04:39 Eos % (Auto) 7.8 % (0.9-2.9) H 05/02/19 04:39 Baso % (Auto) 0.8 % (0.2-1.0) 05/02/19 04:39 Neut # (Auto) 1.6 x10^3/uL (2.2-4.8) L 05/02/19 04:39 Lymph # (Auto) 0.1 X10^3/uL (1.3-2.9) L 05/02/19 04:39 [place] # (Auto) 0.1 x10^3/uL (0.3-0.8) L 05/02/19 04:39 Eos # (Auto) 0.2 x10^3/uL (0.0-0.2) 05/02/19 04:39 Baso # (Auto) 0.0 X10^3/uL (0.0-0.1) 05/02/19 04:39 Absolute Nucleated RBC 0.4 /100WBC 05/02/19 04:39 Total Counted 100 05/02/19 04:39 Neutrophils % (Manual) 75 % (39-76) 05/02/19 04:39 Band Neutrophils % 4 % (0-10) 05/02/19 04:39 Lymphocytes % (Manual) 6 % (13-43) L 05/02/19 04:39 Monocytes % (Manual) 13 % (4-9) H 05/02/19 04:39 Eosinophils % (Manual) 2 % (0-6) 05/02/19 04:39 Atypical Lymphocytes 1 04/27/19 17:53 Plt Morphology Comment Normal (NORMAL) 05/02/19 04:39 RBC Morphology Abnormal (NORMAL) A 05/02/19 04:39 Hypochromasia Slight A 04/29/19 09:01 Anisocytosis Slight A 05/02/19 04:39 Target Cells Rare 05/01/19 04:53 Sodium 139 mmol/L (136-145) 05/02/19 04:39 Corrected Sodium TNP 05/02/19 04:39 Potassium 4.3 mmol/L (3.5-5.1) 05/02/19 04:39 Chloride 110 mmol/L (98-107) H 05/02/19 04:39 Carbon Dioxide 17.3 mmol/L (21-32) L 05/02/19 04:39 BUN 12 mg/dL (7-18) 05/02/19 04:39 Creatinine 0.96 mg/dL (0.55-1.02) 05/02/19 04:39 Est GFR (MDRD) Af Amer > 60 (>60) 05/02/19 04:39 Est GFR (MDRD) Non-Af > 60 (>60) 05/02/19 04:39 Glucose 65 mg/dL (65-99) 05/02/19 04:39 Calcium 8.5 mg/dL (8.5-10.1) 05/02/19 04:39 Corrected Calcium 10.2 mg/dL (8.5-10.1) H 05/02/19 04:39 Magnesium 1.7 mg/dL (1.7-2.9) 04/28/19 04:09 Total Bilirubin 0.20 mg/dL (0.2-1.0) 05/02/19 04:39 AST 64 Units/L (15-37) H 05/02/19 04:39 ALT 19 Units/L (12-78) 05/02/19 04:39 Alkaline Phosphatase 222 Units/L (46-116) H 05/02/19 04:39 Total Protein 6.8 g/dL (6.4-8.2) 05/02/19 04:39 Albumin 1.9 g/dL (3.4-5.0) L 05/02/19 04:39 Globulin 4.9 g/dL (2.5-4.5) H 05/02/19 04:39 Albumin/Globulin Ratio 0.4 Ratio (1.1-2.1) L 05/02/19 04:39 Influenza Type A (PCR) Negative (NEGATIVE) 05/01/19 18:44 Influenza Type B (PCR) Negative (NEGATIVE) 05/01/19 18:44 Mycoplasma pneumon IgG Negative (NEGATIVE) 05/01/19 04:53 Blood Type O POSITIVE 04/28/19 10:08 Antibody Screen Positive 04/28/19 10:08 Antibody Identification NEGATIVE BY ARC 04/28/19 10:08 Crossmatch See Detail 04/28/19 10:08 Plan (1) AIDS (acquired immunodeficiency syndrome): Status: Acute Plan: Noted long history of untreated HIV. Unable to provide or order CD4 count d/t facility limitations. HIV viral load count pending. (2) Multifocal pneumonia: Status: Acute Plan: Continue Abx SputumCx negative. Myco/Flu negative. ASO pending Continue bronchodilators and RT. (3) Elevated AST (SGOT): Status: Acute Plan: Noted gradual elevation of AST:48>64. Will monitor and consider adjustments of medications if continued upward trend. (4) Anemia: Status: Acute Plan: Hgb stable. Continue to monitor. (5) Immunosuppressed status: Status: Acute
[2019-05-02] MEDS: NORCO 5/325 MG TAB PO PRN ×2 (14:37→21:10)
[2019-05-02] MEDS: REMERON PO SCH (21:11)
[2019-05-03] MEDS: DUONEB 0.5 MG/3 MG NEB SCH ×4 (00:02→12:09)
[2019-05-03] MEDS: NS 1000 ML 1,000 ML IV SCH ×4 (01:53→11:08)
[2019-05-03 05:14] LABS: BASOPHILS % (AUTO) 0.6 % (0.2-1.0); EOSINOPHILS # (AUTO) 0.1 x10^3/uL (0.0-0.2); EOSINOPHILS % (AUTO) 6.9 % (0.9-2.9); HEMATOCRIT 35.8 % (36.0-47.0); HEMOGLOBIN 11.7 g/dL (12.0-16.0); LYMPHOCYTES # (AUTO) 0.2 X10^3/uL (1.3-2.9); LYMPHOCYTES % (AUTO) 7.5 % (21.0-51.0); MEAN CORPUSCULAR HEMOGLOBIN 27.8 pg (27.0-34.0); MEAN CORPUSCULAR HGB CONC 32.7 g/dL (33.0-35.0); MEAN CORPUSCULAR VOLUME 84.8 fL (80.0-100.0); MEAN PLATELET VOLUME 7.7 fL (7.4-11.0); MONOCYTES # (AUTO) 0.1 x10^3/uL (0.3-0.8); MONOCYTES % (AUTO) 5.9 % (0.0-13.0); NEUTROPHILS # (AUTO) 1.6 x10^3/uL (2.2-4.8); NEUTROPHILS % (AUTO) 79.1 % (42.0-75.0); PLATELET COUNT 260 X10^3/uL (150.0-450.0); RED BLOOD COUNT 4.22 X10^6/uL (3.5-5.4); RED CELL DISTRIBUTION WIDTH 17.3 % (11.6-16.5); WHITE BLOOD COUNT 2.1 X10^3/uL (3.6-10.0)
[2019-05-03 05:17] VITALS: BP 143/94
[2019-05-03 05:19] LABS: ALANINE AMINOTRANSFERASE 28 Units/L (12-78); ALKALINE PHOSPHATASE 230 Units/L (46-116); ASPARTATE AMINO TRANSFERASE 80 Units/L (15-37); BLOOD UREA NITROGEN 12 mg/dL (7-18); CALCIUM 8.2 mg/dL (8.5-10.1); CARBON DIOXIDE 18.5 mmol/L (21-32); CHLORIDE 107 mmol/L (98-107); COR CA(FOR HYPOALB) 9.8 mg/dL (8.5-10.1); CREATININE 0.97 mg/dL (0.55-1.02); SODIUM 137 mmol/L (136-145); TOTAL PROTEIN 7.1 g/dL (6.4-8.2); eGFR NON BLACK RACES > 60 (>60)
[2019-05-03 05:46] LABS: BAND NEUTROPHILS % 8 % (0-10)
[2019-05-03 05:47] LABS: ANISOCYTOSIS SLIGHT; PLATELET MORPHOLOGY COMMENT NORMAL (NORMAL)
[2019-05-03] MEDS ORDERED: NS 100 ML IV + SPIKE MINIBAG* 100 ML IV ONE (05:53)
[2019-05-03] MEDS: MYCELEX TROCHE MT SCH ×3 (06:10→13:21)
[2019-05-03] MEDS: ZOSYN VIAL 3.375 GRAMS IV SCH (06:10)
[2019-05-03] MEDS: BACTRIM DS TAB PO SCH (06:10)
[2019-05-03] MEDS: NORCO 5/325 MG TAB PO PRN ×2 (06:28→13:21)
[2019-05-03] MEDS: DIFLUCAN PO SCH (08:53)
[2019-05-03] MEDS: PULMICORT NEB TX 0.5 MG NEB SCH (09:00)
[2019-05-03] MEDS ORDERED: BACTRIM DS TAB PO ONE (09:55)
[2019-05-03] MEDS ORDERED: OMNICEF CAP 300 MG PO SCH (10:00)
== END 2019-05-03 14:45 | disposition home or self-care (01) | DRG 976 ==
LOC: MED/SURG → OBSVTOIN 17:14
PROVIDERS: ADMIT Obstetrics & Gynecology Obstetrics; ATTEND Obstetrics & Gynecology Obstetrics
DX: M79.674 Pain in right toe(s); J18.8 Other pneumonia, unspecified organism; Z91.14 Patient's other noncompliance with medication regimen; B37.9 Candidiasis, unspecified; R74.0 Nonspecific elevation of levels of transaminase and lactic acid dehydrogenase [LDH]; R06.02 Shortness of breath; D64.89 Other specified anemias; B20 Human immunodeficiency virus [HIV] disease
CPT/HCPCS: 36415; 36430; 71020; 71046; 71250; 73630; 74000; 74018; 80053; 83735; 85025; 86060; 86738; 86850; 86880; 86885; 86900; 86901; 86922; 87070; 87205; 87502; 87536; 94640; 94760; A4222; P9016; J1450; J2543; J3475; J7030; J7050; J7620; J7626